=== PATIENT | male | born 1970 | race Caucasian/White ===

== ENCOUNTER 2018-02-18 14:47 | Emergency (ER) | payer BC ==
[2008-04-05 00:39] VITALS: BP 109/60
[~2018-02-18] VITALS: Ht 193 cm; Wt 107.7 kg
[~2018-02-18 14:47] MED LIST: AMOXICILLIN 8751 TAB PO; ANDROGEL1% TOP; ANTIVERT 25MG25 MG PO; BACTRIM DS 8001 TAB; CANA300T PO; CELEXA40 MG PO; CITALOPRAM40 MG PO; EFFE25TA; LIPITOR 10MG10 MG PO; MECLIZINE HCL25 M1 PO; MUCINEX 60600 MG/TA1 PO; MUCINEX 60600 MG/TAB PO; MVI; NO HOME MEDICATIONS; NORCO 325 MG-51 TAB PO; NUVIGIL150 MG PO; REGLAN 10MG10 MG/TAB PO; SULFAMETH/TRIME1 TA1 PO; TOBRAMYCIN 0.3% OP; ULTRAM 50MG TAB50 MG PO; UNABLE; VALIUM 5MG T5 MG/TAB PO; ZITHROMAX TRI-500 MG PO; ZOLPIDEM5 MG PO; allergy drops
[2018-02-18 14:52] VITALS: TEMP 97.6
[2018-02-18] MEDS ORDERED: GLUCOPHAGE XR500 M1 PO (14:56)
[2018-02-18] MEDS ORDERED: VICTOZA6 MG/ML SQ (14:56)
[2018-02-18 16:46] VITALS: BP 145/83; PULSE 97
== END 2018-02-18 16:47 | disposition home or self-care (01) ==
LOC: COL.ER 14:47
DX: S60.415A Abrasion of left ring finger, initial encounter (principal); E11.9 Type 2 diabetes mellitus without complications; Z79.84 Long term (current) use of oral hypoglycemic drugs; W23.0XXA Caught, crushed, jammed, or pinched between moving objects, initial encounter; Y92.009 Unspecified place in unspecified non-institutional (private) residence as the place of occurrence of the external cause

== ENCOUNTER 2018-10-16 12:54 | Emergency (ER) | payer BC ==
[2008-04-05 00:39] VITALS: BP 109/60
[~2018-10-16 12:54] MED LIST changes: +GLUCOPHAGE XR500 M1 PO; +VICTOZA6 MG/ML SQ
[2018-10-16 12:57] VITALS: BP 134/77; TEMP 97.9
[2018-10-16] MEDS ORDERED: ZOCOR 40MG40 MG PO (13:00)
[2018-10-16 14:03] VITALS: PULSE 77
== END 2018-10-16 14:03 | disposition home or self-care (01) ==
LOC: COL.ER 12:54
DX: S09.90XA Unspecified injury of head, initial encounter (principal); E11.9 Type 2 diabetes mellitus without complications; Z79.84 Long term (current) use of oral hypoglycemic drugs; W20.8XXA Other cause of strike by thrown, projected or falling object, initial encounter

== ENCOUNTER → 2019-06-19 | Emergency (ER) | payer BC ==
[2008-04-05 00:39] VITALS: BP 109/60
[~2019-06-19] VITALS: Ht 193 cm; Wt 140.9 kg
[~2019-06-19] MED LIST changes: +ALLEGRA ALLERGY60 MG PO; +MULTI VITAMINS1 TAB PO; +UROCIT-K 1010 MEQ PO; +ZOCOR 40MG40 MG PO; +ZOLOFT 50MG50 MG PO
[2019-06-19 07:49] LABS: BASO # 0.1 (0.0-0.2); BASO % 0.9 % (0.0-2.0); EOS # 0.4 (0.0-0.7); EOS % 7.6 % (0-4.0); GRAN # 3.4 (1.4-6.5); GRAN % 60.8 % (42.2-75.2); HEMATOCRIT 42.6 % (42.0-52.0); LYMPH # 1.3 (1.2-3.4); LYMPH % 24.3 % (20.0-51.0); MEAN CELL VOLUME 89 fl (80.0-100.0); MEAN CORPUSCULAR HEMOGLOBIN 29 pg (27.0-31.0); MEAN CORPUSCULAR HGB CONC 33 g/dl (33.0-37.0); MEAN PLATELET VOLUME 9.4 fl (7.4-10.4); MONO # 0.3 (0.1-0.6); PLATELET COUNT 231 K/mm3 (130-400); RED BLOOD COUNT 4.81 M/mm3 (4.20-5.60); REDCELL DISTRIBUTION WIDTH-CV 13.7 % (11.5-14.5)
[2019-06-19 07:51] LABS: ALANINE AMINOTRANSFERASE 22 U/L (21-72); ALBUMIN 3.6 gm/dL (3.5-5.0); ALKALINE PHOSPHATASE 81 U/L (50-136); ANION GAP 8 mmol/L (7-16); AST,SGOT 20 U/L (15-37); BILIRUBIN,TOTAL 0.2 mg/dL (0.0-1.0); BLOOD UREA NITROGEN 17 mg/dL (9-20); CALCIUM 8.5 mg/dL (8.4-10.2); CARBON DIOXIDE 26 mmol/L (22-30); CHLORIDE 107 mmol/L (98-107); CREATININE, serum 0.75 (0.66-1.25); GLUCOSE 124 mg/dL (74-106); POTASSIUM 4.7 mmol/L (3.4-5.0); SODIUM 141 mmol/L (137-145); TOTAL PROTEIN 6.2 gm/dL (6.4-8.2)
[2019-06-19 07:52] LABS: INR 0.9 (0.8-3.0)
[2019-06-19 08:07] LABS: TROPONIN-I < 0.012 ng/mL (0.000-0.035)
[2019-06-19 11:15] VITALS: PULSE 83; TEMP 97.6
[2019-06-19 11:42] VITALS: BP 95/51
== END ==
LOC: COL.ER 06:38
PROVIDERS: Family Medicine
DX: K21.9 Gastro-esophageal reflux disease without esophagitis (principal); E11.9 Type 2 diabetes mellitus without complications; Z90.49 Acquired absence of other specified parts of digestive tract; E78.5 Hyperlipidemia, unspecified; Z79.84 Long term (current) use of oral hypoglycemic drugs
CPT/HCPCS: J1170; J1610; J2405; J7030

== ENCOUNTER 2021-11-01 11:14 | Emergency (ER) | payer BC ==
[~2021-11-01] VITALS: Ht 193 cm; Wt 162.7 kg
[2021-11-01 12:03] VITALS: BP 126/81; TEMP 97.8
[2021-11-01] MEDS ORDERED: NORCO 325 MG-51 TAB PO (12:57)
[2021-11-01 13:15] VITALS: PULSE 71
== END 2021-11-01 13:15 | disposition home or self-care (01) ==
LOC: COL.ER 11:14
DX: M72.2 Plantar fascial fibromatosis (principal); E11.9 Type 2 diabetes mellitus without complications; I10 Essential (primary) hypertension; F32.A Depression, unspecified; E66.9 Obesity, unspecified; Z68.41 Body mass index [BMI] 40.0-44.9, adult; Z79.84 Long term (current) use of oral hypoglycemic drugs; Z79.899 Other long term (current) drug therapy

== ENCOUNTER 2022-02-15 11:47 | Emergency (ER) | payer OTHER, BC ==
[~2022-02-15] VITALS: Ht 193 cm; Wt 156.8 kg
[2022-02-15] MEDS ORDERED: FLEXERIL 1010 MG/TAB PO (14:28)
[2022-02-15] MEDS ORDERED: NAPROSYN500 MG PO (14:28)
[2022-02-15] MEDS ORDERED: NORCO 325 MG-51 TAB PO (14:28)
[2022-02-15 14:44] VITALS: BP 132/86; PULSE 79; TEMP 97.8
== END 2022-02-15 14:44 | disposition home or self-care (01) ==
LOC: COL.ER 11:47
DX: M25.551 Pain in right hip (principal); Z87.891 Personal history of nicotine dependence; W18.30XA Fall on same level, unspecified, initial encounter

== ENCOUNTER 2022-05-15 10:01 | Outpatient (RCR) | payer OTHER ==
[~2022-05-15 10:01] MED LIST changes: +FLEXERIL 1010 MG/TAB PO; +NAPROSYN500 MG PO
== END 2022-05-21 | disposition still patient (30) ==
LOC: WSOH
DX: S70.00XA Contusion of unspecified hip, initial encounter (principal); M25.552 Pain in left hip; M54.50 Low back pain, unspecified; C82.90 Follicular lymphoma, unspecified, unspecified site; E78.00 Pure hypercholesterolemia, unspecified; E11.9 Type 2 diabetes mellitus without complications; F32.A Depression, unspecified; Y99.0 Civilian activity done for income or pay

== ENCOUNTER 2022-07-20 12:59 | Outpatient (RCR) | payer OTHER | END 2022-07-22 | disposition home or self-care (01) | LOC: WSOH | DX: S70.00XD Contusion of unspecified hip, subsequent encounter (principal); M54.16 Radiculopathy, lumbar region; E11.9 Type 2 diabetes mellitus without complications; E78.00 Pure hypercholesterolemia, unspecified; C82.90 Follicular lymphoma, unspecified, unspecified site; Z90.49 Acquired absence of other specified parts of digestive tract; Z98.890 Other specified postprocedural states; Y99.0 Civilian activity done for income or pay ==

== ENCOUNTER 2022-07-27 22:56 | Emergency (ER) | payer OTHER, BC ==
[~2022-07-27] VITALS: Ht 193 cm; Wt 150.0 kg
[2022-07-27 23:01] VITALS: TEMP 98
[2022-07-27] MEDS ORDERED: NORCO 325 MG-51 TAB PO (23:58)
[2022-07-28 00:07] VITALS: BP 132/86; PULSE 75
== END 2022-07-28 00:14 | disposition home or self-care (01) ==
LOC: COL.ER 22:56
DX: M54.50 Low back pain, unspecified (principal); Z88.6 Allergy status to analgesic agent

== ENCOUNTER 2022-08-02 20:43 | Emergency (ER) | payer OTHER, BC ==
[~2022-08-02] VITALS: Ht 193 cm; Wt 150.0 kg
[2022-08-02 20:58] VITALS: TEMP 98.3
[2022-08-02] MEDS ORDERED: MOTRIN 800800 MG/TAB PO (21:31)
[2022-08-02] MEDS ORDERED: PERCOCET 325 MG1 TA2 PO (21:31)
[2022-08-02] MEDS ORDERED: FLEXERIL 1010 MG/TAB PO (21:31)
[2022-08-02] MEDS ORDERED: MIRALAX238G PO (21:31)
[2022-08-02 21:43] VITALS: BP 152/89; PULSE 87
== END 2022-08-02 21:44 | disposition home or self-care (01) ==
LOC: COL.ER 20:43
DX: M54.50 Low back pain, unspecified (principal)
CPT/HCPCS: J2270; J2360

== ENCOUNTER 2022-09-09 12:14 | Outpatient (CLI) | payer OTHER, BC ==
[2008-04-05 00:39] VITALS: BP 109/60
[~2022-09-09] VITALS: Ht 193 cm; Wt 151.8 kg
[~2022-09-09 12:14] MED LIST changes: +GLUMETZA1000 MG PO; +MASON NATURAL2000 IU PO; +MIRALAX238G PO; +MOTRIN 800800 MG/TAB PO; +ONE-A-DAY ESSE1 EACH PO; +PERCOCET 325 MG1 TA2 PO; +PHARMASSURE ZIN50 MG PO; +PROZAC 20MG20 MG PO; +TRULICITY0.75 MG/0. SQ; +ZOCOR 20MG20 MG PO; +ZYRTEC 10MG10 MG PO
[2022-09-09 12:44] VITALS: BP 149/94; PULSE 73; TEMP 97.4
[2022-09-09 13:40] VITALS: BP 127/80; PULSE 73
[2022-09-09 13:45] VITALS: BP 120/87; PULSE 74
[2022-09-09 14:00] VITALS: BP 128/88; PULSE 73
[2022-09-09 14:15] VITALS: BP 123/83; PULSE 72
[2022-09-09 14:30] VITALS: BP 128/86; PULSE 73
--- NOTE | 2022-09-09 14:55 | NUR ---
DC instructions reviewed with pt and . Both express understanding. Pt is tolerating PO fluids without issue. He is steady on feet transferring from bed to wheelchair. Pt assisted out to 's car by wheelchair. Bandaid remains clean, dry and intact.
== END 2022-09-09 14:55 | disposition home or self-care (01) ==
LOC: COL.RAD 12:14
DX: M47.27 Other spondylosis with radiculopathy, lumbosacral region (principal); M51.17 Intervertebral disc disorders with radiculopathy, lumbosacral region
CPT/HCPCS: Q9965

== ENCOUNTER 2022-09-30 08:23 | Emergency (ER) | payer OTHER, BC ==
[~2022-09-30] VITALS: Ht 193 cm; Wt 104.5 kg
[2022-09-30 08:26] VITALS: TEMP 98.5
[2022-09-30] MEDS ORDERED: FLEXERIL 1010 MG/TAB PO (10:36)
[2022-09-30] MEDS ORDERED: PREDNISONE10 MG PO (10:36)
[2022-09-30] MEDS ORDERED: PERCOCET 325 MG1 TA2 PO (10:36)
[2022-09-30 11:45] VITALS: BP 133/82; PULSE 70
== END 2022-09-30 11:45 | disposition home or self-care (01) ==
LOC: COL.ER 08:23
DX: M54.50 Low back pain, unspecified (principal)
CPT/HCPCS: J1100; J1885; J2270; J2405

== ENCOUNTER 2022-12-25 14:08 | Outpatient (RCR) | payer OTHER ==
[~2022-12-25 14:08] MED LIST changes: +PREDNISONE10 MG PO
== END 2023-01-19 | disposition home or self-care (01) ==
LOC: WSOH
DX: Z48.811 Encounter for surgical aftercare following surgery on the nervous system (principal); S70.00XD Contusion of unspecified hip, subsequent encounter; M54.16 Radiculopathy, lumbar region; E11.9 Type 2 diabetes mellitus without complications; C82.90 Follicular lymphoma, unspecified, unspecified site; Y99.0 Civilian activity done for income or pay; E78.00 Pure hypercholesterolemia, unspecified; F32.A Depression, unspecified